=== PATIENT | female | born 1980 | race African-American/Black ===

== ENCOUNTER 2016-12-02 12:52 | Emergency (ER) | payer MEDICAID, OTHER ==
[~2016-12-02] VITALS: Ht 182.9 cm; Wt 105.0 kg
[~2016-12-02 12:52] MED LIST: AMLO10 PO; AMOX500C PO; DICL50TA3 PO; LISI40TA PO; ZOFR4TAB PO
[2016-12-02 12:54] VITALS: BP 221/105; PULSE 78; RESP 16; TEMP 97.8; O2SAT 99
--- NOTE | 2016-12-02 12:57 | PD ---
Physical Exam Time Seen by Provider: 12:54 Narrative 36 y/o female presents for evaluation of htn, headache, nausea, dizziness, blurred vision, increased urinary frequency. Vital signs reviewed. Seen at triage desk. Awaiting bed placement. Data Data Last Documented VS Vital Signs Date Time Temp Pulse Resp B/P Pulse Ox O2 Delivery O2 Flow Rate FiO2 12/02/16 12:54 97.8 78 16 221/105 99 MDM Medical Record Reviewed: Yes Supervised Visit with GENESIS: Mukesh Garibay December 02, 2016 12:57
[2016-12-02 14:13] VITALS: BP 197/97; PULSE 80; RESP 17; O2SAT 97
[2016-12-02 14:24] VITALS: BP 181/88; PULSE 68; RESP 16; TEMP 97.8; O2SAT 99
--- NOTE | 2016-12-02 14:40 | PD ---
HPI Chief Complaint: Headache Time Seen by Provider: 14:36 Travel History International Travel<30 days: No Contact w/Intl Traveler<30days: No Traveled to known affect area: No History of Present Illness HPI 36-year-old female that presents to the ED for evaluation of headache, dizziness , elevated blood pressure. Per patient she's had this on and off for the past couple weeks. Per patient she went to [facility] about a week ago for evaluation of this in the put her back on her lisinopril which she used to take but has not so for a while because she ran out of her insurance. She states that she's been compliant with his medication but she continues to have the high blood pressure and the dizziness and lightheadedness. Per patient she gets a headache on and off. Per patient is tension-like. Not the worst headache of her life. Per patient pain is 7 out of 10. She denies any chest pain or shortness of breath. No abdominal pain. No vaginal discharge. Per patient she does have some urinary frequency. In addition she reports some discomfort to her left leg starts on the foot and goes up the leg and feels more like a tingling sensation. Per patient he feels like she is having spasms in her leg. She's never had anything like this before. No injuries or trauma. She does any back pain. No neck pain. No fevers chills or sweats. She does tell me that she used to be on amlodipine as well as lisinopril and for some reason they did not put her on the amlodipine at the [facility]. Unclear as to what they did for her at the hospital she is not sure. PFSH Past Medical History Diminished Hearing: No Headaches: Yes Hypertension: Yes Immunizations Current: Yes Influenza Vaccination: No ?: Not LMP: 10/2016 Menopausal: No : 5 Para: 4 : 1 Tubal Ligation: Yes Past Surgical History Other Surgery: Yes (TUBAL LIGATION) Social History Alcohol Use: No Tobacco Use: No Substance Use: No (marijuana) Allergies-Medications (Allergen,Severity, Reaction): Coded Allergies: No Known Allergies (Verified , 12/02/16) Reported Meds & Prescriptions Reported Meds & Active Scripts Active Diclofenac Sodium DR (Diclofenac Sodium) 50 Mg Tabdr 50 Mg PO TID Zofran (Ondansetron HCl) 4 Mg Tab 4 Mg PO Q6HR PRN Norvasc (Amlodipine Besylate) 10 Mg Tab 10 Mg PO DAILY Lisinopril 40 Mg Tab 40 Mg PO DAILY Review of Systems Except as stated in HPI: all other systems reviewed are Neg Physical Exam Narrative GENERAL: SKIN: Warm and dry. HEAD: Atraumatic. Normocephalic. EYES: Pupils equal and round 4 mm reactive to light and accommodation. No scleral icterus. No injection or drainage. ENT: No nasal bleeding or discharge. Mucous membranes pink and moist. Tongue is midline. No uvula deviation. NECK: Trachea midline. No JVD. CARDIOVASCULAR: Regular rate and rhythm. No murmurs, S3, S4. RESPIRATORY: No accessory muscle use. Clear to auscultation. Breath sounds equal bilaterally. GASTROINTESTINAL: Abdomen soft, non-tender, nondistended. Hepatic and splenic margins not palpable. MUSCULOSKELETAL: Extremities without clubbing, cyanosis, or edema. No obvious deformities. Full range of motion of the upper and lower extremities bilaterally. 2+ pulses bilaterally. No lumbar, thoracic, cervical spine tenderness to palpation. No obvious deformities noted to the left lower leg. NEUROLOGICAL: Awake and alert. No obvious cranial nerve deficits. Motor grossly within normal limits. Five out of 5 muscle strength in the arms and legs. Normal speech. PSYCHIATRIC: Appropriate mood and affect; insight and judgment normal. Data Data Last Documented VS Vital Signs Date Time Temp Pulse Resp B/P Pulse Ox O2 Delivery O2 Flow Rate FiO2 12/02/16 16:15 71 16 160/71 100 Room Air 12/02/16 14:24 97.8 Orders Electrocardiogram (12/02/16 ) Electrocardiogram (12/02/16 14:31) Complete Blood Count With Diff (12/02/16 14:31) Basic Metabolic Panel (Bmp) (12/02/16 14:31) Ckmb (Isoenzyme) Profile (12/02/16 14:31) Troponin I (12/02/16 14:31) Urinalysis - C+S If Indicated (12/02/16 14:31) Magnesium (Mg) (12/02/16 14:31) Thyroid Stimulating Hormone (12/02/16 14:31) Chest, Single Ap (12/02/16 14:31) Ct Brain W/O Iv Contrast(Rout) (12/02/16 14:31) Iv Access Insert/Monitor (12/02/16 14:31) Ecg Monitoring (12/02/16 14:31) Oximetry (12/02/16 14:31) Enalaprilat Inj (Vasotec Inj) (12/02/16 14:45) Amlodipine (Norvasc) (12/02/16 15:00) Ondansetron Inj (Zofran Inj) (12/02/16 15:00) Us Leg Venous Doppler (12/02/16 ) CKMB (12/02/16 14:50) CKMB% (12/02/16 14:50) Labs Laboratory Tests Test 12/02/16 14:50 White Blood Count 3.9 TH/MM3 Red Blood Count 4.36 MIL/MM3 Hemoglobin 14.1 GM/DL Hematocrit 41.5 % Mean Corpuscular Volume 95.3 FL Mean Corpuscular Hemoglobin 32.4 PG Mean Corpuscular Hemoglobin 34.0 % Concent Red Cell Distribution Width 13.7 % Platelet Count 223 TH/MM3 Mean Platelet Volume 7.7 FL Neutrophils (%) (Auto) 36.6 % Lymphocytes (%) (Auto) 53.1 % Monocytes (%) (Auto) 8.7 % Eosinophils (%) (Auto) 1.1 % Basophils (%) (Auto) 0.5 % Neutrophils # (Auto) 1.4 TH/MM3 Lymphocytes # (Auto) 2.1 TH/MM3 Monocytes # (Auto) 0.3 TH/MM3 Eosinophils # (Auto) 0.0 TH/MM3 Basophils # (Auto) 0.0 TH/MM3 CBC Comment DIFF FINAL Differential Comment Urine Color YELLOW Urine Turbidity CLEAR Urine pH 5.5 Urine Specific [place] 1.020 Urine Protein NEG mg/dL Urine Glucose (UA) NEG mg/dL Urine Ketones NEG mg/dL Urine Occult Blood NEG Urine Nitrite NEG Urine Bilirubin NEG Urine Urobilinogen LESS THAN 2.0 MG/DL Urine Leukocyte Esterase NEG Urine RBC 1 /hpf Urine WBC 1 /hpf Urine Squamous Epithelial 1 /hpf Cells Urine Mucus FEW /lpf Microscopic Urinalysis Comment CULT NOT INDICATED Sodium Level 139 MEQ/L Potassium Level 3.6 MEQ/L Chloride Level 106 MEQ/L Carbon Dioxide Level 28.3 MEQ/L Anion Gap 5 MEQ/L Blood Urea Nitrogen 13 MG/DL Creatinine 0.92 MG/DL Estimat Glomerular Filtration 84 ML/MIN Rate Random Glucose 80 MG/DL Calcium Level 8.7 MG/DL Magnesium Level 2.0 MG/DL Total Creatine Kinase 348 U/L Creatine Kinase MB 4.2 NG/ML Creatine Kinase MB % 1.2 % Troponin I LESS THAN 0.02 NG/ML Thyroid Stimulating Hormone 1.640 uIU/ML 3rd Gen [facility] Medical Decision Making Medical Screen Exam Complete: Yes Emergency Medical Condition: Yes Medical Record Reviewed: Yes Interpretation(s) Last Impressions Head CT 12/02/16 1431 Signed Impressions: Service Date/Time: Friday, December 02, 2016 16:20 - CONCLUSION: Normal examination. Ryan Birmingham MD Lower Extremity Ultrasound 12/02/16 0000 Signed Impressions: Service Date/Time: Friday, December 02, 2016 15:26 - CONCLUSION: 1. No DVT identified. Tito Lizarraga MD CBC & BMP Diagram 12/02/16 14:50 troponin negative CKMB slightly elevated EKG shows sinus rhythm with no sign of acute ischemia or arrhythmia read by me and attending. CT head negative Differential Diagnosis Hypertension versus essential hypertension versus hypertensive crisis versus headache versus migraine headache Narrative Course 36-year-old female that presents to the ED for evaluation of headache, blood pressure issues as well as possible urinary symptoms and left leg pain. Patient was properly examined and was found to have signs and symptoms of unclear etiology. Labs and imaging recommended. Patient's blood pressure initially was in the 200s but now is in the 180s. She was given amlodipine. I recommend labs and imaging. Patient is here with this plan. Labs and imaging showed no sign of acute disease. Patient's blood pressure the came down nicely with no side effects. This time I recommend restarting patient on amlodipine which she used to take already. Patient a prescription for Zofran for her nausea and headache as well as diclofenac sodium. Told to follow with PCP. See ED worsening symptoms. Diagnosis Primary Impression: Hypertension Qualified Code: I10 - Essential hypertension Additional Impressions: Cephalgia Qualified Code: G44.209 - Tension-type headache, not intractable, unspecified chronicity pattern Leg pain, left Patient Instructions: General Instructions Additional Instructions: Take medications as prescribed. Follow with PCP. See ED worsening symptoms. Drink plenty of fluids. Med/Other Pt SpecificInfo: Prescription(s) given Scripts Diclofenac Sodium DR 50 Mg Tabdr50 Mg PO TID #21 TAB Prov:Apodaca,Clayton Z. MD 12/02/16 Ondansetron (Zofran)4 Mg Tab4 Mg PO Q6HR PRN (NAUSEA OR VOMITING) #15 TAB Ref 0 Prov:Oliverio Apodaca MD 12/02/16 Amlodipine (Norvasc)10 Mg Tab10 Mg PO DAILY #30 TAB Ref 0 Prov:Oliverio Apodaca MD 12/02/16 Disposition: 01 DISCHARGE HOME Condition: Stable Ronald Dumont December 02, 2016 14:40
[2016-12-02 14:45] VITALS: RESP 17; O2SAT 99
[2016-12-02] MEDS ORDERED: ENALAPRILAT 1.25 MG/ML VIAL IV PUSH ONE (14:45)
[2016-12-02] MEDS ORDERED: ONDANSETRON HCL 4 MG/2 ML VIAL IV PUSH ONE (15:00)
[2016-12-02 15:21] LABS: BLOOD, URINE NEG (NEG); COMMENT (UR) CULT NOT INDICATED; CULTURE IF INDICATED CULT NOT INDICATED; GLUCOSE,URINE NEG (NEG); KETONE, URINE NEG (NEG); MUCUS URINE FEW /lpf (OCC); NITRITE,URINE NEG (NEG); PH, URINE 5.5 (5.0-8.5); SQUAMOUS EPITHELIAL CELL URINE 1 /hpf (0-5); URINE COLOR YELLOW (YELLW/STRAW)
[2016-12-02 15:23] LABS: AUTOMATED NEUTROPHIL # 1.4 TH/MM3 (1.8-7.7); BASOPHIL % 0.5 % (0.0-2.0); EOSINOPHIL % 1.1 % (0.0-4.0); HEMATOCRIT 41.5 % (35.0-46.0); HEMO FLAGS DIFF FINAL; LYMPH % 53.1 % (9.0-44.0); LYMPHOCYTE # 2.1 TH/MM3 (1.0-4.8); MEAN CELL VOLUME 95.3 FL (80.0-100.0); MEAN CORPUSCULAR HEMOGLOBIN 32.4 PG (27.0-34.0); MONO % 8.7 % (0.0-8.0); NEUT % 36.6 % (16.0-70.0); PLATELET COUNT 223 TH/MM3 (150-450); RED BLOOD COUNT 4.36 MIL/MM3 (4.00-5.30); RED CELL DISTRIBUTION WIDTH 13.7 % (11.6-17.2); WHITE BLOOD COUNT 3.9 TH/MM3 (4.0-11.0)
[2016-12-02 15:33] LABS: ANION GAP 5 MEQ/L (5-15); BICARBONATE 28.3 MEQ/L (21.0-32.0); BLOOD UREA NITROGEN 13 MG/DL (7-18); CHLORIDE 106 MEQ/L (98-107); GLOMERULAR FILTRATION RATE 84 ML/MIN (>89); POTASSIUM 3.6 MEQ/L (3.5-5.1); SODIUM (NA) 139 MEQ/L (136-145)
[2016-12-02 15:42] LABS: CREATINE KINASE 348 U/L (26-192)
[2016-12-02 15:54] LABS: CKMB 4.2 NG/ML (0.5-3.6)
--- NOTE | 2016-12-02 16:09 | RADRPT ---
EXAM DATE/TIME: 12/02/2016 15:26 [facility] COMPARISON: No previous studies available for comparison. INDICATIONS : Left leg pain. MEDICAL HISTORY : Hypertension. Headache. Substance use. Dizziness. SURGICAL HISTORY : Tubal ligation. ENCOUNTER: Initial ACUITY: 2 weeks PAIN SCORE: 7/10 LOCATION: Left leg. TECHNIQUE: Venous ultrasound of the leg was performed from the inguinal ligament to the proximal calf. Real-romy e, color Doppler and spectral tracing, compression and augmentation techniques were used. FINDINGS: There is normal compressibility of the deep venous system from the inguinal region to the proximal ca lf. No echogenic clot is seen in the lumen of the common femoral, femoral, popliteal, and posterior tibial veins. There is a normal response of the venous system to proximal and distal augmentation an d respiration. CONCLUSION: 1. No DVT identified. Tito Lizarraga MD on December 02, 2016 at 16:07 Board Certified Radiologist. This report was verified electronically.
[2016-12-02 16:15] VITALS: BP 160/71; PULSE 71; RESP 16; O2SAT 100
--- NOTE | 2016-12-02 16:16 | RADRPT ---
EXAM DATE/TIME: 12/02/2016 15:08 [facility] COMPARISON: No previous studies available for comparison. INDICATIONS : Short of breath. MEDICAL HISTORY : None. SURGICAL HISTORY : None. ENCOUNTER: Initial ACUITY: 1 day PAIN SCORE: 0/10 LOCATION: Bilateral chest FINDINGS: The heart is enlarged. The pulmonary vascular pattern is normal. The lungs are clear. CONCLUSION: 1. Cardiomegaly. 2. No acute focal pulmonary infiltrate or pulmonary vascular congestion. Mathew Zaldivar MD on December 02, 2016 at 16:10 Board Certified Radiologist. This report was verified electronically.
--- NOTE | 2016-12-02 16:43 | RADRPT ---
EXAM DATE/TIME: 12/02/2016 16:20 [facility] COMPARISON: No previous studies available for comparison. INDICATIONS : Cephalgia, pain on left side RADIATION DOSE: 39.70 CTDIvol (mGy) MEDICAL HISTORY : Hypertension. SURGICAL HISTORY : Tubal ligation. ENCOUNTER: Initial ACUITY: 1 day PAIN SCALE: 3/10 LOCATION: cranial TECHNIQUE: Multiple contiguous axial images were obtained of the head. Using automated exposure control and adj ustment of the mA and/or kV according to patient size, radiation dose was kept as low as reasonably a chievable to obtain optimal diagnostic quality images. FINDINGS: CEREBRUM: The ventricles are normal for age. No evidence of midline shift, mass lesion, hemorrhage or acute in farction. No extra-axial fluid collections are seen. POSTERIOR FOSSA: The cerebellum and brainstem are intact. The 4th ventricle is midline. The cerebellopontine angle i s unremarkable. EXTRACRANIAL: The visualized portion of the orbits is intact. SKULL: The calvaria is intact. No evidence of skull fracture. CONCLUSION: Normal examination. Ryan Birmingham MD on December 02, 2016 at 16:39 Board Certified Radiologist. This report was verified electronically.
[2016-12-02] MEDS ORDERED: AMLO10 PO (16:57)
[2016-12-02] MEDS ORDERED: DICL50TA3 PO (16:57)
[2016-12-02] MEDS ORDERED: ZOFR4TAB PO (16:57)
[2016-12-02 17:15] VITALS: BP 170/98; PULSE 68; RESP 17; O2SAT 99
--- NOTE | 2016-12-03 18:30 | EKG ---
Date Performed: 12/02/2016 Time Performed: 13:03:28 PTAGE: 36 years EKG: Sinus rhythm POSSIBLE LEFT ATRIAL ENLARGEMENT POSSIBLE RIGHT VENTRICULAR CONDUCTION DELAY BORDERLINE ECG Compared to prior tracing no significant change PREVIOUS TRACING : 10/13/2008 15.06 DOCTOR: Mejia Moy Interpretating Date/Time 12/03/2016 18:27:02
== END 2016-12-02 17:47 | disposition home or self-care (01) ==
LOC: NEPE 12:52
DX: I10 Essential (primary) hypertension (principal); G44.209 Tension-type headache, unspecified, not intractable; M79.605 Pain in left leg; R35.0 Frequency of micturition; Z79.899 Other long term (current) drug therapy
CPT/HCPCS: 70450; 71010; 80048; 81001; 82550; 82552; 83735; 84443; 84484; 85025; 93005; 93971; 96374; 99284; J2405